=== PATIENT | female | born 1960 | race Caucasian/White ===

== ENCOUNTER 2018-11-25 23:24 | Emergency (ER) | payer OTHER ==
[~2018-11-25] VITALS: Ht 154.9 cm; Wt 99.8 kg
[2018-11-25 23:30] VITALS: BP_SYST 158
--- NOTE | 2018-11-26 01:10 | NUR ---
Patient left without being seen. No further treatment provided. ER MD aware
--- NOTE | 2018-11-26 01:10 | NUR ---
Called pt 3x, no answer
== END 2018-11-26 01:10 | disposition left against medical advice (07) ==
LOC: SED 23:24
DX: R07.89 Other chest pain (principal); R05 Cough; Z53.21 Procedure and treatment not carried out due to patient leaving prior to being seen by health care provider
CPT/HCPCS: 93005; 99281